=== PATIENT | male | born 1995 | race Two or more races ===

== ENCOUNTER 2024-11-18 14:24 | Emergency (ER) | payer SELFPAY ==
[2024-11-18 14:29] VITALS: BP 132/91; PULSE 102; TEMP 36.7; O2SAT 98; BMI 81.1
--- NOTE | 2024-11-18 14:35 | ED.GENADUL1 ---
HPI HPI - General Adult General Chief complaint: Urogenital-Male Stated complaint: BLOOD IN URINE Time Seen by Provider: 11/18/24 14:27 Source: patient Mode of arrival: walk-in Limitations: no limitations History of Present Illness HPI narrative: Patient is a 29-year-old male who presents to the emergency department following an episode of gross hematuria that began just prior to arrival. Patient states he was getting ready for work and had urinated and it was just bloody at [place] . Patient denies any associated abdominal pain, nausea or vomiting. Patient denies any recent injuries but does state that he has a history of back pain but that is chronic in nature and no new or changing symptoms Onset (ago): minute(s) Severity: mild Associated symptoms: Reports denies other symptoms Related Data Home Medications ?Medication ?Instructions ?Recorded ?Confirmed No Known Home Medications 11/18/24 11/18/24 Allergies Allergy/AdvReac Type Severity Reaction Status Date / Time No Known Drug Allergies Allergy Verified 11/18/24 14:29 Review of Systems ROS Narrative Other than marked, all other review of systems negative Status of ROS 10 or more systems reviewed and unremarkable except as noted in history and below Constitutional Denies: fever Gastrointestinal Denies: abdominal pain, nausea or vomiting Genitourinary Reports: blood in urine; Denies: painful urination, genital pain, penile discharge or testicular pain Musculoskeletal Denies: muscle cramps or muscle weakness PFSH PFSH Social History Little interest or pleasure in doing things: not at all Feeling down, depressed, or hopeless: not at all Exam Constitutional Vital Signs, click to edit/add: Last Vital Signs Temp 98.1 F 11/18/24 14:29 Pulse 102 H 11/18/24 14:29 Resp 16 11/18/24 14:29 BP 132/91 11/18/24 14:29 Pulse Ox 98 11/18/24 14:29 O2 Del Method Room Air 11/18/24 14:29 Documenting provider has reviewed patient's vital signs: yes General appearance: cooperative; not in distress Orientation/consciousness: Yes awake, Yes oriented to person, Yes oriented to place and Yes oriented to time HENMT Common normals: normocephalic Head and scalp: atraumatic Eye Common normals: conjunctivae normal and no scleral icterus Respiratory Common normals: normal respiratory effort GI Common normals: Normal to inspection, nondistended, normoactive bowel sounds present, soft to palpation and non-tender Back & Pelvis Common normals: no CVA tenderness Course Course Hospital Course: Presented to the emergency department following an episode of hematuria that occurred upon awakening this morning. Patient had no associated dysuria, penile discharge, testicle pain or swelling, abdominal pain, flank or back pain. Urinalysis was obtained that does show 75-100 red cells in the urine with no white cells or leukocyte esterase. CT abdomen pelvis and laboratory testing were obtained and CT was interpreted by myself as negative which was in agreement with radiology. Laboratory testing showed normal kidney function, normal electrolytes, normal white count and no signs of anemia. Coagulation studies negative. Discussed asymptomatic hematuria with the patient advised to stay hydrated and patient will be referred to urology for follow-up. Urine GC and chlamydia added and will be pending at this time. Infection warning signs and reasons to return to the emergency department discussed with patient and family Reevaluation(s) Reevaluation #1: Asymptomatic Time: 16:26 Vital Signs Vital signs: Vital Signs Temperature 98.1 F 11/18/24 14:29 Pulse Rate 102 H 11/18/24 14:29 Respiratory Rate 16 11/18/24 14:29 Blood Pressure 132/91 11/18/24 14:29 Pulse Oximetry 98 11/18/24 14:29 Oxygen Delivery Method Room Air 11/18/24 14:29 Temperature 98.1 F 11/18/24 14:29 Pulse Rate 102 H 11/18/24 14:29 Respiratory Rate 16 11/18/24 14:29 Blood Pressure 132/91 11/18/24 14:29 Pulse Oximetry 98 11/18/24 14:29 Oxygen Delivery Method Room Air 11/18/24 14:29 Medical Decision Making MDM Narrative Medical decision making narrative: Presented to the emergency department with painless hematuria x 1 episode that began today. Patient admitted that this was the first time he had urinated today denied any recent back pain, abdominal pain, vomiting, recent illnesses or injuries Differential Diagnosis Differential Diagnosis: Ureterolithiasis, cystitis, pyelonephritis Medical Records Medical records reviewed: Yes I reviewed the patient's medical records Lab Data Lab results reviewed: Yes I reviewed the patient's lab results Lab results narrative: Normal CBC, CMP, PT/INR Labs: Lab Results 06/17/25 06/17/25 Range/Units 14:30 15:35 WBC 10.2 (4.0-11.0) 10^3/uL RBC 5.40 (4.70-6.10) 10^6/uL Hgb 16.5 (14.0-18.0) g/dL Hct 49.2 (42.0-54.0) % MCV 91.1 (80.0-94.0) fL MCH 30.6 (25.9-34.0) pg MCHC 33.5 (29.9-35.2) g/dL RDW 12.2 (11.0-15.0) % Plt Count 358 (150-450) 10^3/uL MPV 9.9 (9.5-13.5) fL Neut % (Auto) 67.7 (43.0-75.0) % Lymph % (Auto) 22.3 (20.5-60.0) % Benson % (Auto) 6.9 (1.7-12.0) % Eos % (Auto) 2.3 (0.9-7.0) % Baso % (Auto) 0.5 (0.2-2.0) % Neut # (Auto) 6.9 H (1.4-6.5) 10^3/uL Lymph # (Auto) 2.3 (1.2-3.8) 10^3/uL Benson # (Auto) 0.7 (0.3-0.8) 10^3/uL Eos # (Auto) 0.2 (0.0-0.7) 10^3/uL Baso # (Auto) 0.1 (0.0-0.1) 10^3/uL Abs Immat Gran (auto) 0.03 (0.00-0.03) 10^3/uL Imm/Tot Granulo (auto) 0.3 (0.0-0.5) % PT 10.9 (9.0-11.6) sec INR 1.03 Sodium 145 (136-145) mmol/L Potassium 3.8 (3.5-5.1) mmol/L Chloride 104 (98-107) mmol/L Carbon Dioxide 30.2 (21.0-32.0) mmol/L Anion Gap 14.6 BUN 15.0 (7.0-18.0) mg/dL Creatinine 0.73 (0.70-1.30) mg/dL Est GFR ( Amer) >60 (>=60 mL/min/1.73m^2) Est GFR (Non-Af Amer) >60 (>=60 mL/min/1.73m^2) BUN/Creatinine Ratio 20.5 Glucose 98 (74-106) mg/dL Calcium 9.4 (8.5-10.1) mg/dL Total Bilirubin 0.8 (0.2-1.0) mg/dL AST 24 (15-37) U/L ALT 50 (16-63) U/L Alkaline Phosphatase 84 (46-116) U/L Total Protein 8.0 (6.4-8.2) g/dL Albumin 3.9 (3.4-5.0) g/dL Globulin 4.1 g/dL Albumin/Globulin Ratio 1.0 Urine Color Yellow (YELLOW) Urine Clarity Sl cloudy (CLEAR) Urine pH 5.5 (5.0-9.0) Ur Specific [place] 1.025 (1.005-1.025) Urine Protein Negative (NEG/TRACE) mg/dL Urine Glucose (UA) Negative (NEGATIVE) mg/dL Urine Ketones Negative (NEGATIVE) mg/dL Urine Occult Blood Large A (NEGATIVE) Urine Nitrite Negative (NEGATIVE) Urine Bilirubin Negative (NEGATIVE) Urine Urobilinogen 0.2 (0.2-1.0) EU/dL Ur Leukocyte Esterase Negative (NEGATIVE) Urine RBC 75-100 A (0-2) #/HPF Urine WBC None seen (NONE SEEN) #/HPF Ur Squamous Epith Cells Rare (NONE/RARE) #/LPF Urine Crystals None seen (None Seen) #/HPF Urine Bacteria Trace A (NONE SEEN) #/HPF Urine Casts None seen (NONE SEEN) #/LPF Urine Mucus None seen (NONE SEEN) Ur Culture Indicated? No Imaging Data CT scan - abdomen: Radiologist's impression: ITS Impressions Abdomen/Pelvis CT 11/18/24 15:21 IMPRESSION: No bowel obstruction or obstructive uropathy. The kidneys, ureters, and bladder appear within normal limits on noncontrast CT. No acute intra-abdominal pathology is noted. Impression dictated by: Dane Mcclain M.D. 11/18/2024 4:08 PM Dictation Location: [place] [address] Electronically authenticated by: [id number] Y Date: 11/18/2024 16:08 Discharge Plan Discharge Chief Complaint: Urogenital-Male Clinical Impression: Hematuria Qualifiers: Hematuria type: gross Qualified Code(s): R31.0 - Gross hematuria Patient Disposition: Home, Self-Care Time of Disposition Decision: 16:27 Mode of Transportation: Private Vehicle Prescriptions / Home Meds: No Action No Known Home Medications Print Language: Spanish Instructions: Hematuria (ED) Referrals: Physician,Non-Staff, MD [Primary Care Provider] - 1 week Mahad Dacosta MD [Physician, Urology] - As soon as possible
[2024-11-18 15:05] LABS: Bilirubin Urine NEGATIVE (NEGATIVE); Blood Urine LARGE (NEGATIVE); Clarity Urine SL CLOUDY (CLEAR); Glucose Urine UA NEGATIVE (NEGATIVE); Ketones Urine NEGATIVE (NEGATIVE); Leukocyte Esterase Urine NEGATIVE (NEGATIVE); Nitrite Urine NEGATIVE (NEGATIVE); Protein Urine NEGATIVE (NEG/TRACE); Specific Gravity Urine 1.025 (1.005-1.025); Urobilinogen Urine 0.2 EU/dL (0.2-1.0); pH Urine 5.5 (5.0-9.0)
[2024-11-18 15:06] LABS: Color Urine YELLOW (YELLOW)
[2024-11-18 15:15] LABS: Bacteria Urine TRACE #/HPF (NONE SEEN); Cast Seen? NONE SEEN #/LPF (NONE SEEN); Crystals Seen? None Seen #/HPF (None Seen); Mucus Urine NONE SEEN (NONE SEEN); RBC Urine 75-100 #/HPF (0-2); Squamous Epithelial Cell Urine RARE #/LPF (NONE/RARE); Urine Culture Indicated NO; WBC Urine NONE SEEN #/HPF (NONE SEEN)
--- NOTE | 2024-11-18 15:21 | CT_ITS ---
The [address] [address] Patient Name: ADAMARIS RUSS MRN: [id number] date: 1995 Sex: M Assigned Patient Location: ER Current Patient Location: ER Accession/Order Number: [id number] Exam Date: 11/18/2024 16:03 Report Date: 11/18/2024 16:08 At the request of: MINH HUNT Procedure: CT abdomen pelvis wo con CT abdomen pelvis wo con 11/18/2024 3:49 PM SIGNS AND SYMPTOMS: ^gross hematuria TECHNIQUE: Multidetector ct axial images of the abdomen and pelvis were obtained without IV contrast. Multiplanar reformats were performed and reviewed to further define anatomy and possible pathology. CT was performed with one or more of the following dose reduction techniques: Automated exposure control, adjustment of the mA and/or kV according to patient size, or use of iterative reconstruction technique. COMPARISON: None. FINDINGS: Lower Chest: Within normal limits. ABDOMEN: Liver: Within normal limits. Bile Ducts: Normal caliber. Gallbladder: No calcified gallstones. Normal caliber wall. Pancreas: Within normal limits. Spleen: Within normal limits. Adrenals: Within normal limits. Kidneys: Within normal limits. Pelvis: Reproductive Organs: No pelvic masses. Ureters: Within normal limits. Bladder: Within normal limits. Bowel: Normal caliber. There is a normal appendix in the right lower quadrant. Several uncomplicated colonic diverticula are present. Mesenteric Lymph Nodes: No enlarged mesenteric lymph nodes. Peritoneum: No ascites or free air, no fluid collection. Vessels: within normal limits Retroperitoneum: Within normal limits. Abdominal Wall: Within normal limits. Bones: Mild degenerative changes are noted in the thoracolumbar spine. CT/CT abdomen pelvis wo con IMPRESSION: No bowel obstruction or obstructive uropathy. The kidneys, ureters, and bladder appear within normal limits on noncontrast CT. No acute intra-abdominal pathology is noted. Impression dictated by: aDne Mcclain M.D. 11/18/2024 4:08 PM Dictation Location: [place] [address] Electronically authenticated by: [id number] Y Date: 11/18/2024 16:08
[2024-11-18 16:00] LABS: Basophils Absolute Auto 0.1 10^3/uL (0.0-0.1); Basophils Percent Auto 0.5 % (0.2-2.0); Eosinophils Absolute Auto 0.2 10^3/uL (0.0-0.7); Eosinophils Percent Auto 2.3 % (0.9-7.0); Hematocrit 49.2 % (42.0-54.0); Hemoglobin 16.5 g/dL (14.0-18.0); Immature Granulocytes Abs Auto 0.03 10^3/uL (0.00-0.03); Immature Granulocytes Pct Auto 0.3 % (0.0-0.5); Lymphocytes Absolute Auto 2.3 10^3/uL (1.2-3.8); Lymphocytes Percent Auto 22.3 % (20.5-60.0); Mean Corpuscular HGB Conc 33.5 g/dL (29.9-35.2); Mean Corpuscular Hemoglobin 30.6 pg (25.9-34.0); Mean Corpuscular Volume 91.1 fL (80.0-94.0); Mean Platelet Volume 9.9 fL (9.5-13.5); Monocytes Absolute Auto 0.7 10^3/uL (0.3-0.8); Monocytes Percent Auto 6.9 % (1.7-12.0); Neutrophils Absolute Auto 6.9 10^3/uL (1.4-6.5); Neutrophils Percent Auto 67.7 % (43.0-75.0); Platelet Count 358 10^3/uL (150-450); Red Cell Distribution Width 12.2 % (11.0-15.0); White Blood Count 10.2 10^3/uL (4.0-11.0)
[2024-11-18 16:14] LABS: INR 1.03; Prothrombin Time 10.9 sec (9.0-11.6)
[2024-11-18 16:20] LABS: Alanine Aminotransferase 50 U/L (16-63); Albumin Level 3.9 g/dL (3.4-5.0); Alkaline Phosphatase 84 U/L (46-116); Anion Gap 14.6; Aspartate Amino Transferase 24 U/L (15-37); BUN Creatinine Ratio 20.5; Bilirubin Total 0.8 mg/dL (0.2-1.0); Calcium 9.4 mg/dL (8.5-10.1); Carbon Dioxide 30.2 mmol/L (21.0-32.0); Chloride 104 mmol/L (98-107); Estimated GFR (African America >60 (>=60 mL/min/1.73m^2); Estimated GFR (Non-African Ame >60 (>=60 mL/min/1.73m^2); Globulin 4.1 g/dL; Glucose 98 mg/dL (74-106); Potassium 3.8 mmol/L (3.5-5.1); Sodium 145 mmol/L (136-145)
[2024-11-21 02:07] LABS: Neisseria gonorrhoeae, NAA Negative (Negative)
== END 2024-11-18 16:38 | disposition home or self-care (01) ==
PROVIDERS: Physician Assistant; Emergency Provider Emergency Medicine
DX: R31.0 Gross hematuria (principal)
CPT/HCPCS: 36415; 74176; 80053; 81001; 85025; 85610; 87491; 87591; 99285

== ENCOUNTER 2025-02-09 17:49 | Emergency (ER) | payer SELFPAY ==
[2025-02-09] VITALS (30 sets, daily range): BP systolic 115–121; BP diastolic 72–80; PULSE 120–141; TEMP 37.3; O2SAT 91–100; BMI 37.3
--- OUTSIDE RECORDS SUMMARY | 2025-02-09 17:56 | XMS_ITS | Clinical Summary ---
Author Organization [employer] [facility] tem Address [id number] [place] [address] Care Team Providers Care Windows Consultant Name Role Phone No Pcp, No Pcp Primary Care Provider Unavailabl e Allergies Active Allergy Reactions Criticality Noted Date Comments Bee Venom Protein (Honey Bee) 2019 Wasp Venom 07/23/2019 Medications albuterol (PROVENTIL,NIKKI YSABEL) 2.5 mg /3 mL (0.083 %) nebulizer solutionIndicati ons:Moderate persistent asthma with acute exacerbation Inhale 3 mL (2.5 mg total) by nebulization every 6 (six) hours as needed for wheezing. 75 mL 0 Active azithromycin (ZITHROMAX) 250 mg tablet 1 tablet for 4 days 4 tablet 0 Active Social History Tobacco Use Types Packs/Day Years Used Date Smoking Tobacco: Every Day Smokeless Tobacco: Never Alcohol Use Standard Drinks/Week Comments Yes 0 (1 standard drink = 0.6 oz pur e alcohol) Childcare Answer Date Recorded Childcare Unknown 07/23/2019 Employment Answer Date Recorded Employment Unknown 07/23/2019 Purpose - Life Answer Date Recorded Purpose and direction in life Unknown Sex and Gender Information Value Date Recorded Sex Assigned at Not on file Legal Sex Male 10:50 PM EST Gender Identity Not on file Sexual Orientation Not on file Last Filed Vital Signs Vital Sign Reading Time Taken Comments Blood Pressure 135/83 07/24/2019 12:02 AM EST Pulse 142 07/24/2019 12:33 AM EST Temperature 37 C (98.6 F) 07/23/2019 11:02 PM EST Respiratory Rate 20 07/24/2019 12:33 AM EST Oxygen Saturation 98% 07/24/2019 12:02 AM EST Inhaled Oxygen Concentration - - Weight 86.2 kg (190 lb) 07/23/2019 11:02 PM EST Height 170.2 cm (5' 7 ) 07/23/2019 11:02 PM EST Body Mass Index 29.76 07/23/2019 11:02 PM EST Plan of Treatment Health Maintenance Due Date Last Done Comments Depression Screening 2005 Tobacco Screening 2005 Adult BMI Screening 2011 DTaP,Tdap and Td Vaccines (1 - Tdap) 2012 Influenza Vaccine 02/02/2025 Medical Devices Not on file Insurance [employer] Care Teams Windows Consultant Relationship Specialty Start Date End Date No Pcp, [place] [address] PCP - General Family Medicine 07/23/19
--- NOTE | 2025-02-09 18:26 | XR_ITS ---
The [place] [id number] Patient Name: ADAMARIS RUSS MRN: [facility]:[id number] date: 1995 Sex: M Assigned Patient Location: ED.MAIN Current Patient Location: ED.MAIN Accession/Order Number: [id number] Exam Date: 02/09/2025 19:09 Report Date: 02/09/2025 19:49 At the request of: EUGENIO TREVIZO MD Procedure: XR chest 1V PA CHEST: CLINICAL HISTORY: Cough COMPARISON: 05/29/2022 Unremarkable cardiomediastinal silhouette.. No focal airspace opacity effusion or pneumothorax. IMPRESSION: NEGATIVE ACUTE PLEURAL-PARENCHYMAL DISEASE. Impression dictated by: Felipe Parks M.D. 02/09/2025 7:49 PM Dictation Location: [place] [address] Electronically authenticated by: [id number] Y Date: 02/09/2025 19:49
--- NOTE | 2025-02-09 18:26 | ECG_ITS ---
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
--- NOTE | 2025-02-09 18:26 | ED.GENADUL1 ---
Documented by User: Richie Mclean MD 02/09/25 18:29 HPI HPI - General Adult General Chief complaint: Upper Respiratory Infection Stated complaint: Upper Respiratory Infection Time Seen by Provider: 02/09/25 18:21 Source: patient Mode of arrival: walk-in Limitations: no limitations History of Present Illness HPI narrative: 29-year-old male presents for a chief complaint of sore throat. He states he woke up with it this morning and he has been coughing up some yellow phlegm and his body hurts. He has used his inhaler 15 times today. No known ill contacts. Symptoms have been continuous all day. Related Data Home Medications ?Medication ?Instructions ?Recorded ?Confirmed No Known Home Medications 11/18/24 11/18/24 Allergies Allergy/AdvReac Type Severity Reaction Status Date / Time bee venom protein (honey bee) Allergy Severe Anaphylaxis Verified 02/09/25 17:52 Opioid HPI Opioid Management Most Recent Opioid Data: Last Pain Scale 7 Today, 17:52 Ur Phencyclidine Scrn, (NEGATIVE) Negative Today, 19:04 Review of Systems ROS Narrative A ten point review of systems is negative except as noted above. PFSH PFSH Social History Little interest or pleasure in doing things: not at all Feeling down, depressed, or hopeless: not at all Exam Narrative Exam Narrative: Nurses note and vital signs reviewed and patient is not hypoxic. General: The patient appears well and in no apparent distress. Patient is resting comfortably on cart. Skin: Warm, dry, no pallor noted. There is no rash noted. Head: Normocephalic, atraumatic Eye: Normal conjunctiva, no drainage Ears, Nose, Mouth, and Throat: oral mucosa is moist. Nares patent. No pharyngeal erythema or exudate. Uvula midline. Cardiovascular: Regular Rate and Rhythm, tachycardic Respiratory: Patient is in no distress, no accessory muscle use, lungs show bilateral rhonchi Back: non-tender GI: Soft and nontender Musculoskeletal: The patient has no evidence of calf tenderness, no pitting edema, symmetrical pulses noted bilaterally Neurological: Awake and alert Psychiatric: Moderately cooperative Constitutional Vital Signs, click to edit/add: Last Vital Signs Temp 99.2 F 02/09/25 17:52 Pulse 130 H 02/09/25 18:40 Resp 22 H 02/09/25 18:40 BP 121/80 02/09/25 17:52 Pulse Ox 96 02/09/25 18:40 O2 Del Method Room Air 02/09/25 18:40 Course Vital Signs Vital signs: Vital Signs Temperature 99.2 F 02/09/25 17:52 Pulse Rate 138 H 02/09/25 17:52 Respiratory Rate 24 H 02/09/25 17:52 Blood Pressure 121/80 02/09/25 17:52 Pulse Oximetry 95 02/09/25 17:52 Oxygen Delivery Method Room Air 02/09/25 17:52 Temperature 99.2 F 02/09/25 17:52 Pulse Rate 130 H 02/09/25 18:40 Respiratory Rate 22 H 02/09/25 18:40 Blood Pressure 121/80 02/09/25 17:52 Pulse Oximetry 96 02/09/25 18:40 Oxygen Delivery Method Room Air 02/09/25 18:40 Medical Decision Making MDM Narrative Medical decision making narrative: Tests are ordered and the patient is signed out to Dr. Lara at change of shift. Differential Diagnosis Differential Diagnosis: Pneumonia, COVID, dehydration, strep throat Lab Data Labs: Lab Results 02/09/25 02/09/25 02/09/25 Range/Units 18:35 18:40 19:04 WBC 11.8 H (4.0-11.0) 10^3/uL RBC 4.73 (4.70-6.10) 10^6/uL Hgb 14.6 (14.0-18.0) g/dL Hct 43.0 (42.0-54.0) % MCV 90.9 (80.0-94.0) fL MCH 30.9 (25.9-34.0) pg MCHC 34.0 (29.9-35.2) g/dL RDW 12.2 (11.0-15.0) % Plt Count 308 (150-450) 10^3/uL MPV 9.8 (9.5-13.5) fL Neut % (Auto) 76.9 H (43.0-75.0) % Lymph % (Auto) 13.3 L (20.5-60.0) % [place] % (Auto) 7.5 (1.7-12.0) % Eos % (Auto) 1.8 (0.9-7.0) % Baso % (Auto) 0.2 (0.2-2.0) % Neut # (Auto) 9.1 H (1.4-6.5) 10^3/uL Lymph # (Auto) 1.6 (1.2-3.8) 10^3/uL [place] # (Auto) 0.9 H (0.3-0.8) 10^3/uL Eos # (Auto) 0.2 (0.0-0.7) 10^3/uL Baso # (Auto) 0.0 (0.0-0.1) 10^3/uL Abs Immat Gran (auto) 0.03 (0.00-0.03) 10^3/uL Imm/Tot Granulo (auto) 0.3 (0.0-0.5) % Sodium 143 (136-145) mmol/L Potassium 3.7 (3.5-5.1) mmol/L Chloride 104 (98-107) mmol/L Carbon Dioxide 29.8 (21.0-32.0) mmol/L Anion Gap 12.9 BUN 8.0 (7.0-18.0) mg/dL Creatinine 0.98 (0.70-1.30) mg/dL Est GFR ( Amer) >60 (>=60 mL/min/1.73m^2) Est GFR (Non-Af Amer) >60 (>=60 mL/min/1.73m^2) BUN/Creatinine Ratio 8.2 Glucose 105 (74-106) mg/dL Calcium 8.8 (8.5-10.1) mg/dL Troponin I High Sens (4.0-76.1) pg/mL NT-Pro-B Natriuret Pep (<=450.0) pg/mL Urine Color Lt. yellow (YELLOW) Urine Clarity Clear (CLEAR) Urine pH 6.5 (5.0-9.0) Ur Specific [place] 1.010 (1.005-1.025) Urine Protein Negative (NEG/TRACE) mg/dL Urine Glucose (UA) Negative (NEGATIVE) mg/dL Urine Ketones Negative (NEGATIVE) mg/dL Urine Occult Blood Negative (NEGATIVE) Urine Nitrite Negative (NEGATIVE) Urine Bilirubin Negative (NEGATIVE) Urine Urobilinogen 0.2 (0.2-1.0) EU/dL Ur Leukocyte Esterase Trace A (NEGATIVE) Urine RBC None seen (0-2) #/HPF Urine WBC 2-5 A (NONE SEEN) #/HPF Ur Squamous Epith Cells Few A (NONE/RARE) #/LPF Urine Crystals Seen A (None Seen) #/HPF Amorphous Sediment Few Urine Bacteria None seen (NONE SEEN) #/HPF Urine Casts None seen (NONE SEEN) #/LPF Urine Mucus None seen (NONE SEEN) Ur Culture Indicated? No Urine Opiates Screen Negative (NEGATIVE) Ur Buprenorphine Scrn Negative (NEGATIVE) Ur Oxycodone Screen Negative (NEGATIVE) Urine Methadone Screen Negative (NEGATIVE) Ur Barbiturates Screen Negative (NEGATIVE) U Tricyclic Antidepress Negative (NEGATIVE) Ur Phencyclidine Scrn Negative (NEGATIVE) Ur Amphetamines Screen Negative (NEGATIVE) U Methamphetamines Scrn Negative (NEGATIVE) U Benzodiazepines Scrn Negative (NEGATIVE) Urine Cocaine Screen Negative (NEGATIVE) U Cannabinoids Screen Negative (NEGATIVE) SARS-CoV-2 Ag (CV2AG) Negative (NEGATIVE) Streptococcus Screen Negative 02/09/25 Range/Units 20:17 WBC (4.0-11.0) 10^3/uL RBC (4.70-6.10) 10^6/uL Hgb (14.0-18.0) g/dL Hct (42.0-54.0) % MCV (80.0-94.0) fL MCH (25.9-34.0) pg MCHC (29.9-35.2) g/dL RDW (11.0-15.0) % Plt Count (150-450) 10^3/uL MPV (9.5-13.5) fL Neut % (Auto) (43.0-75.0) % Lymph % (Auto) (20.5-60.0) % [place] % (Auto) (1.7-12.0) % Eos % (Auto) (0.9-7.0) % Baso % (Auto) (0.2-2.0) % Neut # (Auto) (1.4-6.5) 10^3/uL Lymph # (Auto) (1.2-3.8) 10^3/uL [place] # (Auto) (0.3-0.8) 10^3/uL Eos # (Auto) (0.0-0.7) 10^3/uL Baso # (Auto) (0.0-0.1) 10^3/uL Abs Immat Gran (auto) (0.00-0.03) 10^3/uL Imm/Tot Granulo (auto) (0.0-0.5) % Sodium (136-145) mmol/L Potassium (3.5-5.1) mmol/L Chloride (98-107) mmol/L Carbon Dioxide (21.0-32.0) mmol/L Anion Gap BUN (7.0-18.0) mg/dL Creatinine (0.70-1.30) mg/dL Est GFR ( Amer) (>=60 mL/min/1.73m^2) Est GFR (Non-Af Amer) (>=60 mL/min/1.73m^2) BUN/Creatinine Ratio Glucose (74-106) mg/dL Calcium (8.5-10.1) mg/dL Troponin I High Sens 5.1 (4.0-76.1) pg/mL NT-Pro-B Natriuret Pep 18.0 (<=450.0) pg/mL Urine Color (YELLOW) Urine Clarity (CLEAR) Urine pH (5.0-9.0) Ur Specific [place] (1.005-1.025) Urine Protein (NEG/TRACE) mg/dL Urine Glucose (UA) (NEGATIVE) mg/dL Urine Ketones (NEGATIVE) mg/dL Urine Occult Blood (NEGATIVE) Urine Nitrite (NEGATIVE) Urine Bilirubin (NEGATIVE) Urine Urobilinogen (0.2-1.0) EU/dL Ur Leukocyte Esterase (NEGATIVE) Urine RBC (0-2) #/HPF Urine WBC (NONE SEEN) #/HPF Ur Squamous Epith Cells (NONE/RARE) #/LPF Urine Crystals (None Seen) #/HPF Amorphous Sediment Urine Bacteria (NONE SEEN) #/HPF Urine Casts (NONE SEEN) #/LPF Urine Mucus (NONE SEEN) Ur Culture Indicated? Urine Opiates Screen (NEGATIVE) Ur Buprenorphine Scrn (NEGATIVE) Ur Oxycodone Screen (NEGATIVE) Urine Methadone Screen (NEGATIVE) Ur Barbiturates Screen (NEGATIVE) U Tricyclic Antidepress (NEGATIVE) Ur Phencyclidine Scrn (NEGATIVE) Ur Amphetamines Screen (NEGATIVE) U Methamphetamines Scrn (NEGATIVE) U Benzodiazepines Scrn (NEGATIVE) Urine Cocaine Screen (NEGATIVE) U Cannabinoids Screen (NEGATIVE) SARS-CoV-2 Ag (CV2AG) (NEGATIVE) Streptococcus Screen Discharge Plan Discharge Chief Complaint: Upper Respiratory Infection Clinical Impression: Pharyngitis, Upper respiratory infection, Acute bronchospasm Patient Disposition: Home, Self-Care Prescriptions / Home Meds: No Action No Known Home Medications Print Language: Slovenian Instructions: Pharyngitis (ED), Upper Respiratory Infection (ED), Bronchospasm (ED) Additional Instructions: follow up with your doctor tomorrow for recheck, return to emergency department if symptoms worsen. Drink lots of fluids and get plenty of rest. Zpack - daily for 5 days Prednisone - daily for 5 days Referrals: Physician,Non-Staff, [Primary Care Provider] - 1 week Documented by User: Louis Lara MD 02/09/25 22:15 HPI HPI - General Adult General Chief complaint: Upper Respiratory Infection Stated complaint: Upper Respiratory Infection Time Seen by Provider: 02/09/25 18:21 Related Data Home Medications ?Medication ?Instructions ?Recorded ?Confirmed No Known Home Medications 11/18/24 11/18/24 Allergies Allergy/AdvReac Type Severity Reaction Status Date / Time bee venom protein (honey bee) Allergy Severe Anaphylaxis Verified 02/09/25 17:52 Opioid HPI Opioid Management Most Recent Opioid Data: Last Pain Scale 7 Today, 17:52 Ur Phencyclidine Scrn, (NEGATIVE) Negative Today, 19:04 PFSH PFSH Social History Little interest or pleasure in doing things: not at all Feeling down, depressed, or hopeless: not at all Exam Constitutional Vital Signs, click to edit/add: Last Vital Signs Temp 99.2 F 02/09/25 17:52 Pulse 130 H 02/09/25 18:40 Resp 22 H 02/09/25 18:40 BP 121/80 02/09/25 17:52 Pulse Ox 96 02/09/25 18:40 O2 Del Method Room Air 02/09/25 18:40 Course Vital Signs Vital signs: Vital Signs Temperature 99.2 F 02/09/25 17:52 Pulse Rate 138 H 02/09/25 17:52 Respiratory Rate 24 H 02/09/25 17:52 Blood Pressure 121/80 02/09/25 17:52 Pulse Oximetry 95 02/09/25 17:52 Oxygen Delivery Method Room Air 02/09/25 17:52 Temperature 99.2 F 02/09/25 17:52 Pulse Rate 130 H 02/09/25 18:40 Respiratory Rate 22 H 02/09/25 18:40 Blood Pressure 121/80 02/09/25 17:52 Pulse Oximetry 96 02/09/25 18:40 Oxygen Delivery Method Room Air 02/09/25 18:40 Medical Decision Making MDM Narrative Medical decision making narrative: Tests are ordered and the patient is signed out to Dr. Lara at change of shift. patient past history of asthma. In the past was heavy cigarette smoker. States he would smoke a cart a week of cigarettes. Switched to vaping about 2-3 years ago. States he always wheezes some. uses his inhaer daily at least once or twice. Used 10-15 times tonight before coming in. Had received albuterol NMT here in the department. Rechecked and still has diffuse wheezing. Treated with solumedrol and also given Toradol for body aches. cxray neg. labs unremarkable including neg COVID19 and strep screen. Throat red. He is feeling better after above intervention but still has wheezing but definitely improved. Informed of the plan for overnight admission but he is refusing. States he has to go and get his son. Apparently CPS is involved and his son is with his father. He insist on leaving. ADvised if he changes his mind he should return. Will plan zpak and prednisone. He remains tachycardic but states his heart rate is usually fast Lab Data Labs: Lab Results 02/09/25 02/09/25 02/09/25 Range/Units 18:35 18:40 19:04 WBC 11.8 H (4.0-11.0) 10^3/uL RBC 4.73 (4.70-6.10) 10^6/uL Hgb 14.6 (14.0-18.0) g/dL Hct 43.0 (42.0-54.0) % MCV 90.9 (80.0-94.0) fL MCH 30.9 (25.9-34.0) pg MCHC 34.0 (29.9-35.2) g/dL RDW 12.2 (11.0-15.0) % Plt Count 308 (150-450) 10^3/uL MPV 9.8 (9.5-13.5) fL Neut % (Auto) 76.9 H (43.0-75.0) % Lymph % (Auto) 13.3 L (20.5-60.0) % [place] % (Auto) 7.5 (1.7-12.0) % Eos % (Auto) 1.8 (0.9-7.0) % Baso % (Auto) 0.2 (0.2-2.0) % Neut # (Auto) 9.1 H (1.4-6.5) 10^3/uL Lymph # (Auto) 1.6 (1.2-3.8) 10^3/uL [place] # (Auto) 0.9 H (0.3-0.8) 10^3/uL Eos # (Auto) 0.2 (0.0-0.7) 10^3/uL Baso # (Auto) 0.0 (0.0-0.1) 10^3/uL Abs Immat Gran (auto) 0.03 (0.00-0.03) 10^3/uL Imm/Tot Granulo (auto) 0.3 (0.0-0.5) % Sodium 143 (136-145) mmol/L Potassium 3.7 (3.5-5.1) mmol/L Chloride 104 (98-107) mmol/L Carbon Dioxide 29.8 (21.0-32.0) mmol/L Anion Gap 12.9 BUN 8.0 (7.0-18.0) mg/dL Creatinine 0.98 (0.70-1.30) mg/dL Est GFR ( Amer) >60 (>=60 mL/min/1.73m^2) Est GFR (Non-Af Amer) >60 (>=60 mL/min/1.73m^2) BUN/Creatinine Ratio 8.2 Glucose 105 (74-106) mg/dL Calcium 8.8 (8.5-10.1) mg/dL Troponin I High Sens (4.0-76.1) pg/mL NT-Pro-B Natriuret Pep (<=450.0) pg/mL Urine Color Lt. yellow (YELLOW) Urine Clarity Clear (CLEAR) Urine pH 6.5 (5.0-9.0) Ur Specific [place] 1.010 (1.005-1.025) Urine Protein Negative (NEG/TRACE) mg/dL Urine Glucose (UA) Negative (NEGATIVE) mg/dL Urine Ketones Negative (NEGATIVE) mg/dL Urine Occult Blood Negative (NEGATIVE) Urine Nitrite Negative (NEGATIVE) Urine Bilirubin Negative (NEGATIVE) Urine Urobilinogen 0.2 (0.2-1.0) EU/dL Ur Leukocyte Esterase Trace A (NEGATIVE) Urine RBC None seen (0-2) #/HPF Urine WBC 2-5 A (NONE SEEN) #/HPF Ur Squamous Epith Cells Few A (NONE/RARE) #/LPF Urine Crystals Seen A (None Seen) #/HPF Amorphous Sediment Few Urine Bacteria None seen (NONE SEEN) #/HPF Urine Casts None seen (NONE SEEN) #/LPF Urine Mucus None seen (NONE SEEN) Ur Culture Indicated? No Urine Opiates Screen Negative (NEGATIVE) Ur Buprenorphine Scrn Negative (NEGATIVE) Ur Oxycodone Screen Negative (NEGATIVE) Urine Methadone Screen Negative (NEGATIVE) Ur Barbiturates Screen Negative (NEGATIVE) U Tricyclic Antidepress Negative (NEGATIVE) Ur Phencyclidine Scrn Negative (NEGATIVE) Ur Amphetamines Screen Negative (NEGATIVE) U Methamphetamines Scrn Negative (NEGATIVE) U Benzodiazepines Scrn Negative (NEGATIVE) Urine Cocaine Screen Negative (NEGATIVE) U Cannabinoids Screen Negative (NEGATIVE) SARS-CoV-2 Ag (CV2AG) Negative (NEGATIVE) Streptococcus Screen Negative 02/09/25 Range/Units 20:17 WBC (4.0-11.0) 10^3/uL RBC (4.70-6.10) 10^6/uL Hgb (14.0-18.0) g/dL Hct (42.0-54.0) % MCV (80.0-94.0) fL MCH (25.9-34.0) pg MCHC (29.9-35.2) g/dL RDW (11.0-15.0) % Plt Count (150-450) 10^3/uL MPV (9.5-13.5) fL Neut % (Auto) (43.0-75.0) % Lymph % (Auto) (20.5-60.0) % [place] % (Auto) (1.7-12.0) % Eos % (Auto) (0.9-7.0) % Baso % (Auto) (0.2-2.0) % Neut # (Auto) (1.4-6.5) 10^3/uL Lymph # (Auto) (1.2-3.8) 10^3/uL [place] # (Auto) (0.3-0.8) 10^3/uL Eos # (Auto) (0.0-0.7) 10^3/uL Baso # (Auto) (0.0-0.1) 10^3/uL Abs Immat Gran (auto) (0.00-0.03) 10^3/uL Imm/Tot Granulo (auto) (0.0-0.5) % Sodium (136-145) mmol/L Potassium (3.5-5.1) mmol/L Chloride (98-107) mmol/L Carbon Dioxide (21.0-32.0) mmol/L Anion Gap BUN (7.0-18.0) mg/dL Creatinine (0.70-1.30) mg/dL Est GFR ( Amer) (>=60 mL/min/1.73m^2) Est GFR (Non-Af Amer) (>=60 mL/min/1.73m^2) BUN/Creatinine Ratio Glucose (74-106) mg/dL Calcium (8.5-10.1) mg/dL Troponin I High Sens 5.1 (4.0-76.1) pg/mL NT-Pro-B Natriuret Pep 18.0 (<=450.0) pg/mL Urine Color (YELLOW) Urine Clarity (CLEAR) Urine pH (5.0-9.0) Ur Specific [place] (1.005-1.025) Urine Protein (NEG/TRACE) mg/dL Urine Glucose (UA) (NEGATIVE) mg/dL Urine Ketones (NEGATIVE) mg/dL Urine Occult Blood (NEGATIVE) Urine Nitrite (NEGATIVE) Urine Bilirubin (NEGATIVE) Urine Urobilinogen (0.2-1.0) EU/dL Ur Leukocyte Esterase (NEGATIVE) Urine RBC (0-2) #/HPF Urine WBC (NONE SEEN) #/HPF Ur Squamous Epith Cells (NONE/RARE) #/LPF Urine Crystals (None Seen) #/HPF Amorphous Sediment Urine Bacteria (NONE SEEN) #/HPF Urine Casts (NONE SEEN) #/LPF Urine Mucus (NONE SEEN) Ur Culture Indicated? Urine Opiates Screen (NEGATIVE) Ur Buprenorphine Scrn (NEGATIVE) Ur Oxycodone Screen (NEGATIVE) Urine Methadone Screen (NEGATIVE) Ur Barbiturates Screen (NEGATIVE) U Tricyclic Antidepress (NEGATIVE) Ur Phencyclidine Scrn (NEGATIVE) Ur Amphetamines Screen (NEGATIVE) U Methamphetamines Scrn (NEGATIVE) U Benzodiazepines Scrn (NEGATIVE) Urine Cocaine Screen (NEGATIVE) U Cannabinoids Screen (NEGATIVE) SARS-CoV-2 Ag (CV2AG) (NEGATIVE) Streptococcus Screen Discharge Plan Discharge Chief Complaint: Upper Respiratory Infection Clinical Impression: Pharyngitis, Upper respiratory infection, Acute bronchospasm Patient Disposition: Home, Self-Care Prescriptions / Home Meds: No Action No Known Home Medications Print Language: Slovenian Instructions: Pharyngitis (ED), Upper Respiratory Infection (ED), Bronchospasm (ED) Additional Instructions: follow up with your doctor tomorrow for recheck, return to emergency department if symptoms worsen. Drink lots of fluids and get plenty of rest. Zpack - daily for 5 days Prednisone - daily for 5 days Referrals: Physician,Non-Staff, MD [Primary Care Provider] - 1 week
[2025-02-09] MEDS: ALBUTEROL SULFATE 2.5 MG/3 ML VIAL NEB IH (18:39)
[2025-02-09 18:57] LABS: Hematocrit 43.0 % (42.0-54.0); Hemoglobin 14.6 g/dL (14.0-18.0); Immature Granulocytes Abs Auto 0.03 10^3/uL (0.00-0.03); Immature Granulocytes Pct Auto 0.3 % (0.0-0.5); Lymphocytes Absolute Auto 1.6 10^3/uL (1.2-3.8); Mean Corpuscular HGB Conc 34.0 g/dL (29.9-35.2); Mean Corpuscular Hemoglobin 30.9 pg (25.9-34.0); Mean Corpuscular Volume 90.9 fL (80.0-94.0); Platelet Count 308 10^3/uL (150-450); Red Blood Count 4.73 10^6/uL (4.70-6.10); White Blood Count 11.8 10^3/uL (4.0-11.0)
[2025-02-09] MEDS: 0.9 % SODIUM CHLORIDE 1,000 ML 1000 ML IV (19:00)
[2025-02-09 19:08] LABS: Anion Gap 12.9; Blood Urea Nitrogen 8.0 mg/dL (7.0-18.0); Calcium 8.8 mg/dL (8.5-10.1); Carbon Dioxide 29.8 mmol/L (21.0-32.0); Chloride 104 mmol/L (98-107); Estimated GFR (African America >60 (>=60 mL/min/1.73m^2); Estimated GFR (Non-African Ame >60 (>=60 mL/min/1.73m^2); Glucose 105 mg/dL (74-106); Potassium 3.7 mmol/L (3.5-5.1); Sodium 143 mmol/L (136-145)
[2025-02-09 19:11] LABS: SARS-CoV-2 Ag NEGATIVE (NEGATIVE)
[2025-02-09 19:27] LABS: Glucose Urine UA NEGATIVE (NEGATIVE)
[2025-02-09 19:36] LABS: Cast Seen? NONE SEEN #/LPF (NONE SEEN); Crystals Seen? Seen #/HPF (None Seen); Urine Culture Indicated NO
[2025-02-09 19:37] LABS: Cannabinoid Screen Urine NEGATIVE (NEGATIVE); Methamphetamines Screen Urine NEGATIVE (NEGATIVE); Tricyclic Antidepressant Urine NEGATIVE (NEGATIVE)
[2025-02-09] MEDS: METHYLPREDNISOLONE SOD SUCC PF 125 MG/2 ML VIAL IVP (19:53)
[2025-02-09] MEDS: 0.9 % SODIUM CHLORIDE 1,000 ML 999 ML IV (19:53)
[2025-02-09] MEDS: KETOROLAC TROMETHAMINE 30 MG/ML VIAL IVP (20:34)
[2025-02-09 21:13] LABS: NT Pro B Type Natriuretic Pept 18.0 pg/mL (<=450.0)
[2025-02-09] MEDS: AZITHROMYCIN 250 MG TABLET 500 MG PO (22:18)
== END 2025-02-09 22:51 | disposition home or self-care (01) ==
PROVIDERS: Internal Medicine; Emergency Provider Emergency Medicine
DX: J02.9 Acute pharyngitis, unspecified (principal); J06.9 Acute upper respiratory infection, unspecified; F17.290 Nicotine dependence, other tobacco product, uncomplicated; J45.909 Unspecified asthma, uncomplicated
CPT/HCPCS: 36415; 71045; 80048; 80307; 81001; 83880; 84484; 85025; 87070; 87811; 87880; 93005; 94640; 96374; 96375; 99285; J1885; J2919